=== PATIENT | female | born 1990 | race Two or more races ===

== ENCOUNTER 2018-08-08 19:06 | Emergency (ER) | payer BC, OTHER ==
[~2018-08-08] VITALS: Ht 162.6 cm; Wt 68.9 kg
[2018-08-08 19:09] VITALS: BP 117/76
[2018-08-08 19:50] LABS: Basophils # (auto) 0.1 uL; Basophils % (auto) 0.8 % (0.0-2.0); Eosinophils # (auto) 0.1 uL; Hematocrit 33.4 % (36.0-46.0); Lymphocytes # (auto) 1.6 uL; Lymphocytes % (auto) 23.3 % (10.0-50.0); Mean Corpuscular Hemoglobin 31.4 pg (28.0-32.0); Mean Corpuscular Hgb Conc. 33.1 g/dL (32.0-36.0); Monocytes # (auto) 0.5 uL; Monocytes % (auto) 7.5 % (0.0-12.0); Neutrophils # (auto) 4.7 uL; Neutrophils % (auto) 67.4 % (37.0-80.0); Nucleated Red Blood Cells % 0.1 %; Platelet Count (auto) 252 10^3/uL (140-450); Red Blood Cells 3.51 10^6/uL (4.0-5.20); Red Cell Distribution Width 13.7 % (11.8-14.3)
[2018-08-08 19:54] LABS: Alanine Aminotransferase 18 U/L (13-56); Albumin 2.8 g/dL (3.4-5.0); Anion Gap 8 (5-15); Aspartate Aminotransferase 12 U/L (15-37); Blood Urea Nitrogen 6 mg/dL (7-18); Calcium 8.4 mg/dL (8.5-10.1); Carbon Dioxide 24 mmol/L (21-32); Chloride 106 mmol/L (98-107); Glucose 90 mg/dL (74-106); Potassium 3.6 mmol/L (3.5-5.1); Sodium 138 mmol/L (136-145)
[2018-08-08 19:59] LABS: Alkaline Phosphatase 51 U/L (45-117); BUN/Creatinine Ratio 13.3; Bilirubin, Total 0.4 mg/dL (0.2-1.0); GFR African American 212 mL/min; GFR Non-African American 175 mL/min; Total Protein 6.2 g/dL (6.4-8.2)
[2018-08-08 23:48] LABS: Salicylate < 1.7 mg/dL (2.8-20.0)
[2018-08-08 23:50] LABS: Acetaminophen < 2.0 ug/mL (10-30)
[2018-08-09] MEDS ORDERED: LEVE250T18 PO (08:52)
== END 2018-08-09 05:41 | disposition left against medical advice (07) ==
LOC: ER 19:06 → EDBD 19:06 → ER 08-09 05:41
DX: O99.342 Other mental disorders complicating pregnancy, second trimester (principal); F29 Unspecified psychosis not due to a substance or known physiological condition; F20.9 Schizophrenia, unspecified; Z3A.21 21 weeks gestation of pregnancy
CPT/HCPCS: 36415; 80053; 80320; 80329; 84484; 84702; 85025; 94761

== ENCOUNTER 2018-08-09 07:00 | Observation (INO) | payer BC ==
[2018-08-09] MEDS ORDERED: LEVE250T18 PO (08:52)
== END 2018-08-09 08:30 | disposition still patient (30) | DRG 833 ==
LOC: LDRP 07:00
PROVIDERS: ADMIT Specialist; ATTEND Specialist
DX: O26.892 Other specified pregnancy related conditions, second trimester (principal); R30.0 Dysuria; R47.02 Dysphasia; O99.342 Other mental disorders complicating pregnancy, second trimester; F41.9 Anxiety disorder, unspecified; F20.9 Schizophrenia, unspecified; F31.9 Bipolar disorder, unspecified; O99.332 Smoking (tobacco) complicating pregnancy, second trimester; F17.210 Nicotine dependence, cigarettes, uncomplicated; O99.322 Drug use complicating pregnancy, second trimester; F12.90 Cannabis use, unspecified, uncomplicated; Z3A.22 22 weeks gestation of pregnancy
CPT/HCPCS: 59025; 76805; 81002; G0378

== ENCOUNTER 2018-08-09 08:45 | Emergency (ER) | payer BC ==
[~2018-08-09] VITALS: Ht 162.6 cm; Wt 68.9 kg
[2018-08-09 08:49] VITALS: BP 130/85
[2018-08-09] MEDS ORDERED: LEVE250T18 PO (08:52)
== END 2018-08-09 09:50 | disposition left against medical advice (07) ==
LOC: ER 08:47
DX: O99.342 Other mental disorders complicating pregnancy, second trimester (principal); R44.3 Hallucinations, unspecified; Z3A.23 23 weeks gestation of pregnancy; Z53.21 Procedure and treatment not carried out due to patient leaving prior to being seen by health care provider

== ENCOUNTER 2020-10-03 22:07 | Emergency (ER) | payer BC, MEDICAID ==
[~2020-10-03] VITALS: Ht 162.6 cm; Wt 68.0 kg
[~2020-10-03 22:07] MED LIST: LEVE250T18 PO
[2020-10-04 02:46] VITALS: BP 124/75
[2020-10-04] MEDS ORDERED: IBUPROFEN 800 MG TAB PO ONE (03:30)
== END 2020-10-04 08:29 | disposition home or self-care (01) ==
LOC: ER 22:09
DX: T83.022A Displacement of nephrostomy catheter, initial encounter (principal); I10 Essential (primary) hypertension; I48.91 Unspecified atrial fibrillation; E78.5 Hyperlipidemia, unspecified; Z79.899 Other long term (current) drug therapy
CPT/HCPCS: 81025; 93971